=== PATIENT | female | born 1945 | race Two or more races ===

== ENCOUNTER 2017-11-20 16:06 | Emergency (ER) | payer SELFPAY ==
--- NOTE | 2017-11-20 17:28 | C.PDOC ---
History Of Present Illness 72 y/o F brought to ED by ambulance with [place] police. Patient states she wishes to leave and does not understand why she is here against her will. She states that she was at a motel planning to stay the night. She was under the understanding that the room would cost 50 dollars but it turned out to be 100 so she asked the motel worker to call her a cab. She states she was waiting outside with her bags and then an ambulance arrived asking if she was all right and they left. She states that then police officers arrived and while they were there, they called the EMS workers back. She states they all went into the hotel to speak with the worker there and when she tried to walk into the room, they held the door shut to keep her out. She states they brought her here to the ED. She denies homicidal ideation or suicidal ideation. She denies visual or auditory hallucinations. She does not wish for any help or anyone to speak with. She states she has enough money to take a cab and stay at a motel tonight and that is what she would like to do. Time Seen by Provider: 11/20/17 16:24 Chief Complaint (Nursing): Psychiatric Evaluation Past Medical History Family History: States: Unknown Family Hx - Social History Hx Alcohol Use: No (not answering) Hx Substance Use: No (not answering) Review Of Systems Except As Marked, All Systems Reviewed And Found Negative. Constitutional: Negative for: Fever Cardiovascular: Negative for: Chest Pain Respiratory: Negative for: Shortness of Breath Physical Exam - Physical Exam Additional Physical Exam Comments: Constitutional: No acute distress. Head: Normocephalic. Atraumatic. Eyes: No discharge. ENT: Moist mucous membranes. Neck: No visible goiter. Respiratory: No accessory muscle use. Neurologic: Alert, no focal deficit. Medical Decision Making Medical Decision Making: The patient is not a danger to self or others and there is no indication for involuntary hold in ED for further evaluation. Taxi called for patient to a motel in the surrounding neighborhood. Disposition - Disposition Disposition: HOME/ ROUTINE Disposition Time: 17:30 Condition: STABLE - Clinical Impression Clinical Impression: Patient reports no signs or symptoms
== END 2017-11-20 18:58 | disposition home or self-care (01) ==
LOC: C.ER 16:06
DX: Z00.8 Encounter for other general examination (principal)